=== PATIENT | female | born 1955 | race Caucasian/White ===

== ENCOUNTER 2021-11-20 10:41 | Outpatient (CLI) | payer MEDICAID ==
--- NOTE | 2021-11-27 16:44 | Mammography Report ---
BILATERAL DIGITAL SCREENING MAMMOGRAM 3D/2D WITH EXAGGERATED CC: 11/20/2021 CLINICAL: Routine screening. Family history of breast cancer. No prior exams were available for comparison. The tissue of both breasts is extremely dense, which l owers the sensitivity of mammography. No significant masses, calcifications, or other findings are seen in either breast. IMPRESSION: NEGATIVE There is no mammographic evidence of malignancy. A 1 year screening mammogram is recommended. This exam was interpreted at Station ID: [id number]. NOTE: For mammograms, a report in lay terms will be sent to the patient. Approximately 15% of breast malignancies will not be visualized mammographically. In the management of a palpable breast mass, a negative mammogram must not discourage biopsy of a clinically suspicious lesion. Electronically Signed By: Dillan Pacheco M.D. [email or web address]:11/27/2021 08:45:06 ACR BI-RADS Category 1: Negative 3341F PARENCHYMAL PATTERN: (VD) - The breast(s) demonstrate(s) extremely dense parenchyma, limiting the sen sitivity of mammography. BI-RADS CATEGORY: (1) - 1 RECOMMENDATION: (ANNUAL) - Recommend routine annual screening mammography. [id number] 1 year screening LATERALITY: (B)
== END 2021-11-20 10:42 | disposition home or self-care (01) ==
LOC: DI.S 10:41
PROVIDERS: ATTEND Registered Nurse
DX: Z12.31 Encounter for screening mammogram for malignant neoplasm of breast (principal); Z80.3 Family history of malignant neoplasm of breast

== ENCOUNTER 2022-12-17 10:46 | Outpatient (CLI) | payer MEDICARE, MEDICAID ==
--- NOTE | 2022-12-18 09:13 | Mammography Report ---
BILATERAL DIGITAL SCREENING MAMMOGRAM 3D/2D WITH EXAGGERATED CC: 12/17/2022 CLINICAL: Routine screening. Family history of breast cancer. Comparison is made to exam dated: 11/20/2021 mammogram - [facility]. Both breasts are extremely dense, which lowers the sensitivity of mammography (category d />75% gland ular tissue). No significant masses, calcifications, or other findings are seen in either breast. There has been no significant interval change. IMPRESSION: NEGATIVE There is no mammographic evidence of malignancy. A 1 year screening mammogram is recommended. Based on the Tyrer Cuzick model (a risk assessment model) the patients lifetime risk is 13.5% and he r 10 year risk is 6.6%. According to the ACR, ACS, and NCCN guidelines, an annual breast MRI exam diana ng with mammogram is recommended if the patients lifetime risk is 20% or greater. This exam was interpreted at Station ID: [id number]. NOTE: For mammograms, a report in lay terms will be sent to the patient. Approximately 15% of breast malignancies will not be visualized mammographically. In the management of a palpable breast mass, a negative mammogram must not discourage biopsy of a clinically suspicious lesion. Electronically Signed By: Dillan [email or web address]:12/17/2022 12:29:22 letter sent: No_Letter ACR BI-RADS Category 1: Negative 3341F PARENCHYMAL PATTERN: (VD) - The breast(s) demonstrate(s) extremely dense parenchyma, limiting the sen sitivity of mammography. BI-RADS CATEGORY: (1) - 1 Mammogram [id number] 1 year screening LATERALITY: (B)
== END 2022-12-17 10:47 | disposition home or self-care (01) ==
LOC: DI.S 10:46
PROVIDERS: ATTEND Registered Nurse
DX: Z12.31 Encounter for screening mammogram for malignant neoplasm of breast (principal); Z80.3 Family history of malignant neoplasm of breast

== ENCOUNTER 2023-11-06 13:13 | Outpatient (CLI) | payer MEDICARE, MEDICAID ==
--- NOTE | 2023-11-06 15:22 | XRAY Report ---
PROCEDURE: Shoulder 2+V RT INDICATIONS: RIGHT SHOULDER TENDINITIS TECHNIQUE: 3 views of the shoulder were acquired. COMPARISON: None. FINDINGS: Bones: There are mild acromioclavicular and glenohumeral degenerative changes. No displaced fracture or dislocation. Soft tissues: No suspicious calcifications. IMPRESSION: Mild degenerative changes. No acute radiographic abnormality. If there is high concern for further de rangement, consider MRI evaluation. Reviewed by: Keyon Cardona MD on 11/06/2023 3:20 PM PDT Approved by: Keyon Cardona MD on 11/06/2023 3:20 PM PDT Station ID: [id number]
== END 2023-11-06 13:14 | disposition home or self-care (01) ==
LOC: DI 13:13
PROVIDERS: ATTEND Emergency Medicine
DX: M19.011 Primary osteoarthritis, right shoulder (principal)